=== PATIENT | male | born 1960 | race Caucasian/White ===

== ENCOUNTER 2021-12-22 00:09 | Emergency (ER) | payer BC, OTHER ==
[~2021-12-22] VITALS: Ht 175 cm; Wt 82.5 kg
[2021-12-22] MEDS ORDERED: OMEP40CA6 (00:31)
[2021-12-22] MEDS ORDERED: ROSU10TA28 (00:31)
[2021-12-22] MEDS ORDERED: GBPN600T (00:31)
[2021-12-22] MEDS ORDERED: KETOROLAC 30 MG/ML VIAL IVP STA (00:32)
[2021-12-22] MEDS ORDERED: NS IV 1000 ML 1,000 ML IV ONE (00:45)
[2021-12-22 00:53] LABS: BASOPHILS % (AUTO) 0 % (0-10); EOSINOPHILS % (AUTO) 0 % (0-10); HEMATOCRIT 49 % (40-54); HEMOGLOBIN 16.1 g/dL (13.3-17.7); LYMPHOCYTES # (AUTO) 1.8 10^3/uL (1.0-4.0); LYMPHOCYTES % (AUTO) 23 % (12-44); MEAN CORPUSCULAR HEMOGLOBIN 30 pg (25-34); MEAN CORPUSCULAR HGB CONC 33 g/dL (32-36); MEAN CORPUSCULAR VOLUME 90 fL (80-99); MEAN PLATELET VOLUME 8.8 fL (9.0-12.2); MONOCYTES # (AUTO) 1.1 10^3/uL (0.0-1.0); MONOCYTES % (AUTO) 14 % (0-12); NEUTROPHILS # (AUTO) 4.9 10^3/uL (1.8-7.8); NEUTROPHILS % (AUTO) 62 % (42-75); PLATELET COUNT 201 10^3/uL (130-400); WHITE BLOOD COUNT 7.9 10^3/uL (4.3-11.0)
[2021-12-22] MEDS ORDERED: ONDANSETRON 4 MG/2 ML (SDV) Z0FRAN IVP ONE (01:00)
[2021-12-22 01:08] LABS: ALBUMIN 4.2 GM/DL (3.2-4.5); POTASSIUM 3.8 MMOL/L (3.6-5.0)
[2021-12-22 01:12] LABS: BILIRUBIN,TOTAL 0.7 MG/DL (0.1-1.0)
[2021-12-22 01:14] LABS: CREATININE SERUM 0.95 MG/DL (0.60-1.30)
[2021-12-22 01:17] LABS: ERYTHROCYTE SEDIMENTATION RATE 3 MM/HR (0-30)
--- NOTE | 2021-12-22 01:17 | ED General ---
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 Source of Information: Patient Exam Limitations: No Limitations History of Present Illness Date Seen by Provider: Dec 22, 2021 Time Seen by Provider: 00:24 Initial Comments Here with report of bilateral leg pain for the last 3 days that he thinks maybe he had Aguilera. 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 He had IVIG x2 and had resolution although persistent leg pain. He does take gabapentin for that. He is taking that currently and states that it is not helping with the pain. Denies current illness but then does admit to sore throat and runny nose for the last 4 days. He has had vaccination for COVID with [facility] in March of last year. He has not had booster. Denies cough, shortness of air, nausea or vomiting. States he has not slept in 3 days due to the pain. Later states that he has all over body aches. Timing/Duration: 3-4 Days, Getting Worse Severity: Moderate Associated Systoms: No Chest Pain, No Cough, No Fever/Chills, No Nausea/Vomiting, No Shortness of Air; Weakness (Bilateral legs) Allergies and Home Medications Allergies Coded Allergies: Sulfa (Sulfonamides) (Verified Allergy, Unknown, 01/22/06) HIVES Patient Home Medication List Home Medication List Reviewed: Yes Gabapentin (Gabapentin) 600 Mg Tablet, (Reported) Entered as Reported by: HERMANN MAHER on 12/22/2130 Last Action: New Order Omeprazole (Omeprazole) 40 Mg Capsule.dr (Reported) Entered as Reported by: HERMANN MAHER on 12/22/2130 Last Action: New Order Rosuvastatin Calcium (Rosuvastatin Calcium) 10 Mg Tablet, (Reported) Entered as Reported by: HERMANN MAHER on 12/22/2130 Last Action: New Order Review of Systems Review of Systems Constitutional: see HPI; No chills, No fever EENTM: nose congestion, throat pain; No eye pain, No vision loss Respiratory: No cough, No short of breath Cardiovascular: No chest pain, No edema Gastrointestinal: No abdominal pain, No nausea, No vomiting Genitourinary: No dysuria, No pain Musculoskeletal: joint pain, muscle pain, muscle weakness Skin: No change in color, No lesions Psychiatric/Neurological: Denies Tingling; Weakness All Other Systems Reviewed Negative Unless Noted: Yes Past Swvklwe-Kughxy-Jmazpo Hx Patient Social History Tobacco Use?: No Substance use?: No Alcohol Use?: No Pt feels they are or have been: No Immunizations Up To Date First/Initial COVID19 Vaccinat: 04/04 COVID19 Vaccine Acute Care Nurse: j&j Past Medical History Surgery/Hospitalization HX: ch. back pain, hypothryoid, bph, gerd, peripheral neuropathy. shoulder Surgeries: Yes Orthopedic Respiratory: No Cardiac: Yes High Cholesterol Neurological: Yes (Guillain-Aguilera) Genitourinary: Yes Benign Prostatic Hyperpl Gastrointestinal: Yes Gastroesophageal Reflux Musculoskeletal: Yes Chronic Back Pain Endocrine: Yes Hypothyroidsim Cancer: Yes Prostate Did You Recieve Any Treatments: No Family Medical History Reviewed Nursing Family Hx No Pertinent Family Hx Physical Exam Vital Signs Vital Signs - First Documented 12/22/21 00:23 Temp 36.6 Pulse 73 Resp 18 B/P (MAP) 137/71 (93) Pulse Ox 95 O2 Delivery Room Air Capillary Refill : Less Than 3 Seconds Height, Weight, BMI Height: '" Weight: lbs. oz. kg; 26.00 BMI Method: General Appearance: WD/WN, Mild Distress (Leg pain) HEENT: PERRL/EOMI, Pharynx Normal Neck: Non Tender, Supple Respiratory: Lungs Clear, Normal Breath Sounds Cardiovascular: Regular Rate, Rhythm, No Murmur Gastrointestinal: Non Tender, Soft Back: Normal Inspection, No CVA Tenderness, No Vertebral Tenderness Extremity: Normal Range of Motion, Pelvis Stable, Other (Gait is steady. Able to stand and walk without difficulty.) Neurologic/Psychiatric: Alert, Oriented x3, Other (Unable to elicit reflexes at knee. Unsure if this is chronic.) Skin: Normal Color, Warm/Dry Progress/Results/Core Measures Suspected Sepsis SIRS Temperature: Pulse: 73 Respiratory Rate: 18 Laboratory Tests 12/22/21 00:40: White Blood Count 7.9 Blood Pressure 137 /71 Mean: 93 Laboratory Tests 12/22/21 00:40: Creatinine 0.95, Platelet Count 201, Total Bilirubin 0.7 Results/Orders Lab Results Laboratory Tests Test 12/22/21 00:40 Range/Units White Blood Count 7.9 4.3-11.0 10^3/uL Red Blood Count 5.44 4.30-5.52 10^6/uL Hemoglobin 16.1 13.3-17.7 g/dL Hematocrit 49 40-54 % Mean Corpuscular Volume 90 80-99 fL Mean Corpuscular Hemoglobin 30 25-34 pg Mean Corpuscular Hemoglobin Concent 33 32-36 g/dL Red Cell Distribution Width 13.2 10.0-14.5 % Platelet Count 201 130-400 10^3/uL Mean Platelet Volume 8.8 L 9.0-12.2 fL Immature Granulocyte % (Auto) 0 % Neutrophils (%) (Auto) 62 42-75 % Lymphocytes (%) (Auto) 23 12-44 % Monocytes (%) (Auto) 14 H 0-12 % Eosinophils (%) (Auto) 0 0-10 % Basophils (%) (Auto) 0 0-10 % Neutrophils # (Auto) 4.9 1.8-7.8 10^3/uL Lymphocytes # (Auto) 1.8 1.0-4.0 10^3/uL Monocytes # (Auto) 1.1 H 0.0-1.0 10^3/uL Eosinophils # (Auto) 0.0 0.0-0.3 10^3/uL Basophils # (Auto) 0.0 0.0-0.1 10^3/uL Immature Granulocyte # (Auto) 0.0 0.0-0.1 10^3/uL Erythrocyte Sedimentation Rate 3 0-30 MM/HR Sodium Level 140 135-145 MMOL/L Potassium Level 3.8 3.6-5.0 MMOL/L Chloride Level 103 98-107 MMOL/L Carbon Dioxide Level 26 21-32 MMOL/L Anion Gap 11 5-14 MMOL/L Blood Urea Nitrogen 10 7-18 MG/DL Creatinine 0.95 0.60-1.30 MG/DL Estimat Glomerular Filtration Rate 90 BUN/Creatinine Ratio 11 Glucose Level 166 H 70-105 MG/DL Calcium Level 9.0 8.5-10.1 MG/DL Corrected Calcium 8.8 8.5-10.1 MG/DL Total Bilirubin 0.7 0.1-1.0 MG/DL Aspartate Amino Transf (AST/SGOT) 22 5-34 U/L Alanine Aminotransferase (ALT/SGPT) 24 0-55 U/L Alkaline Phosphatase 60 40-136 U/L C-Reactive Protein High Sensitivity 0.71 H 0.00-0.50 MG/DL Total Protein 7.0 6.4-8.2 GM/DL Albumin 4.2 3.2-4.5 GM/DL Influenza Type A (RT-PCR) Not Detected Not Detecte Influenza Type B (RT-PCR) Not Detected Not Detecte SARS-CoV-2 RNA (RT-PCR) Detected H Not Detecte My Orders Orders - JUAN PABLO EDWARDS MD Cbc With Automated Diff (12/22/21 00:32) Comprehensive Metabolic Panel (12/22/21 00:32) Hs C Reactive Protein (12/22/21 00:32) Influenza A And B By Pcr (12/22/21 00:32) Erythrocyte Sedimentation Rate (12/22/21 00:32) Ed Iv/Invasive Line Start (12/22/21 00:32) Covid 19 Inhouse Test (12/22/21 00:32) Ketorolac Injection (Toradol Injection) (12/22/21 00:32) Ed Iv/Invasive Line Start (12/22/21 00:32) Ns Iv 1000 Ml (Sodium Chloride 0.9%) (12/22/21 00:45) Ondansetron Injection (Zofran Injectio (12/22/21 01:00) Hydrocodone/Apap 7.5/325 Tab (Lortab 7. (12/22/21 01:31) Chest 1 View, Ap/Pa Only (12/22/21 01:31) Medications Given in ED Current Medications Medications Dose Ordered Sig/Gale Route Start Time Stop Time Status Last Admin Dose Admin Ondansetron HCl 4 mg ONCE ONCE IVP 12/22/21 01:00 12/22/21 01:01 DC 12/22/21 00:55 4 MG Sodium Chloride 1,000 ml @ 0 mls/hr Q0M ONCE IV 12/22/21 00:45 12/22/21 00:46 DC 12/22/21 00:44 0 MLS/HR Vital Signs/I&O 12/22/21 00:23 Temp 36.6 Pulse 73 Resp 18 B/P (MAP) 137/71 (93) Pulse Ox 95 O2 Delivery Room Air Capillary Refill : Less Than 3 Seconds Blood Pressure Mean: 93 Progress Note : Progress Note Seen and evaluated. IV, labs, Toradol 30 mg IV, normal saline 1 L bolus, Zofran 4 mg IV ordered. We will check rapid flu and Covid as he would require transfer if this does appear to be more associated with Guillain-Aguilera. I do have concerns that this is more of a viral illness as he has allover body aches and leg pain. Monitor patient. 0126: Patient is positive for COVID-19. Labs do not indicate significant elevation in CRP or sed rate. White count normal. This would appear to be more related to COVID-19 than Guillain-Aguilera. Monitor patient. 0200: Patient informed of results. Hydrocodone 7.5/325 1 tab p.o. given now. He will continue outpatient treatment with Tylenol and ibuprofen as needed. We will give prescription for mulnopiravir that will be sent to apothecary. Patient informed that this is emergency use authorization in fact sheet given. Patient agrees to prescription. Discharged home with return precautions. Patient verbalized understanding of instructions and agreement with plan. Diagnostic Imaging Diagonstic Imaging: Xray Plain Films/CT/US/NM/MRI: chest Comments No acute findings Reviewed: Reviewed by Me Departure Impression Primary Impression: COVID-19 virus infection Disposition: 01 HOME, SELF-CARE Condition: Stable Departure-Patient Inst. Decision time for Depature: 02:03 Referrals: JESUS SAMANIEGO MD (PCP/Family) Primary Care Physician Patient Instructions: COVID-19 (DC) Add. Discharge Instructions: All discharge instructions reviewed with patient and/or family. Voiced understanding. Drink plenty of fluids and get plenty of rest. Your COVID-19 test was positive. You will need to remain in isolation for at least 5 days with an additional 5 days of strict mask worn while in public. You must be symptom improving and fever free for 24 hours without fever reducing medicines to be off isolation and into the public for the second 5-day timeframe. The health department should contact you to direct timeframe as well. You need to notify your close contacts so that they may quarantine and this will include anybody that you are around for 10 minutes within 6 feet 2 days prior to onset of symptoms. Monitor your oxygen saturation while resting. Currently it is __94__ percent. If that starts to decline below 90 while resting, please return immediately to the emergency department for further evaluation. You may take ibuprofen 600 mg every 8 hours as needed for fever or pain. You may take Tylenol/acetaminophen 1000 mg every 8 hours as needed for fever or pain. Return for worse pain, fever, vomiting, weakness, breathing problems or other concerns as needed. You will need to go to the apothecary pharmacy at the [facility] located on [facility] to pepper picker your prescription for the medication to treat Covid infection. Please read the fact sheet given as this is a medication that is under emergency use authorization for the treatment of COVID-19. Scripts Molnupiravir (Molnupiravir (Eua)) 200 Mg Capsule 800 MG PO BID for 5 Days, #40 CAP Prov: JUAN PABLO EDWARDS MD 12/22/21 JUAN PABLO EDWARDS MD Dec 22, 2021 01:17
[2021-12-22] MEDS ORDERED: HYDROcodone/APAP 7.5 MG/325 MG (LORTAB, LORCET PLUS) TABLET PO STA (01:31)
[2021-12-22] MEDS ORDERED: MOLN200C PO (02:08)
[2021-12-22 02:15] VITALS: BP 123/68
--- NOTE | 2021-12-22 07:17 | Diagnostic Imaging Report ---
EXAMINATION: Chest 1 view HISTORY: COVID 19 COMPARISON: None available. FINDINGS: There is mild left base atelectasis or pneumonia. No pleural effusion or pneumothorax. Heart size is normal. IMPRESSION: 1. Mild left base atelectasis or pneumonia. Dictated by: Dictated on workstation # [id number]
== END 2021-12-22 02:16 | disposition home or self-care (01) ==
LOC: EDUNIT# 00:09 → ER 00:14
DX: U07.1 COVID-19 (principal); G62.9 Polyneuropathy, unspecified; K21.9 Gastro-esophageal reflux disease without esophagitis; E78.00 Pure hypercholesterolemia, unspecified
CPT/HCPCS: 36415; 71045; 80053; 85025; 85652; 86141; 87636

== ENCOUNTER → 2022-09-07 | Outpatient (CLI) | payer BC ==
[~2022-09-07] MED LIST: GBPN600T; MOLN200C PO; OMEP40CA6; ROSU10TA28
--- NOTE | 2022-09-07 15:21 | Diagnostic Imaging Report ---
PROCEDURE: CT abdomen and pelvis without contrast. TECHNIQUE: Multiple contiguous axial images were obtained through the abdomen and pelvis without the use of intravenous contrast. Auto Exposure Controls were utilized during the CT exam to meet ALARA standards for radiation dose reduction. INDICATION: Prostate cancer. No prior studies are available for comparison. Imaging through lung bases does show some linear scarring or atelectasis in the left lower lobe. The liver contains numerous circumscribed low attenuation lesion suggestive of cysts. The gallbladder is unremarkable. No biliary ductal dilatation is seen. The pancreas and spleen are unremarkable. No adrenal mass is identified. Left kidney contains a tiny nonobstructing calculus in the lower pole. No other calculi are seen. There is no hydronephrosis. Aorta is nonaneurysmal. No central retroperitoneal or mesenteric lymphadenopathy is detected. Bowel loops are normal caliber. There is no free fluid or fluid collection. No pelvic lymphadenopathy is identified. Prostate is unremarkable. Bladder is unremarkable. No osteoblastic lesions are detected. IMPRESSION: 1. Hepatic cyst. 2. Tiny nonobstructing left renal calculus. 3. No evidence of abdominal or pelvic lymphadenopathy or metastatic disease. Dictated by: Dictated on workstation # [id number]
--- NOTE | 2022-09-07 15:52 | Diagnostic Imaging Report ---
INDICATION: 62-year-old male, prostate cancer diagnosed one year ago. Left-sided abdominal pain.. TECHNIQUE: The patient was administered 26.6 mCi technetium 99m MDP intravenously. After a delay, anterior and posterior whole-body planar images are obtained. CORRELATION STUDY: None FINDINGS: Joint normal uptake throughout the visualized axial and appendicular skeleton. No abnormal areas of radiotracer accumulation suggest osseous blastic metastasis of. Normal uptake by the kidneys excretion into the urinary bladder. IMPRESSION: 1. Negative appearing baseline bone scan. Dictated by: Dictated on workstation # [id number]
== END ==
LOC: CARD 11:36
PROVIDERS: ATTEND Urology
DX: K76.89 Other specified diseases of liver (principal); C61 Malignant neoplasm of prostate
CPT/HCPCS: 74176; 78306; A9503